=== PATIENT | male | born 1980 | race Caucasian/White ===

== ENCOUNTER 2018-10-09 17:35 | Emergency (ER) | payer OTHER, BC, SELFPAY ==
[2018-10-09 17:35] VITALS: BP 161/94; PULSE 96; RESP 18; TEMP 36.9; O2SAT 100; BMI 37.3
--- NOTE | 2018-10-09 18:02 | EKG12_ITS ---
Test Reason : GEN ILL Blood Pressure : / mmHG Vent. Rate : 084 BPM Atrial Rate : 084 BPM P-R Int : 152 ms QRS Dur : 094 ms QT Int : 370 ms P-R-T Axes : 000 007 025 degrees QTc Int : 437 ms Normal sinus rhythm with sinus arrhythmia Normal ECG Confirmed by TEOFILO GEE, MUKUND ([id number]), development editor ELIZABETH MOREL ([id number]) on 10/11/2018 3:44:37 PM Referred By: ROBSON/KORINA Confirmed By:MUKUND RED MD
[2018-10-09 18:42] LABS: Absolute Lymphocyte Count 2.78 X10^3/ul (0.83-4.51); Absolute Neutrophil Count 4.7 X10^3/uL (2.0-7.7); Basophil# 0.04 X10^3/uL; Basophil% 0.5 % (0-1); Eosinophil# 0.11 X10^3/uL; Eosinophils% 1.3 % (0-5); Hematocrit 44.5 % (40-54); Hemoglobin 14.8 g/dl (13.0-16.5); Lymphocyte # 2.78 X10^3/ul (4.0); Mean Corp Hgb Conc 33.3 g/gl (32-36); Mean Corpuscular Hgb 29.5 pg (27.0-32.0); Mean Corpuscular Volume 88.8 fL (80-94); Mean Platelet Vol. 10.2 fl (6.2-12.0); Monocyte# 0.57 X10^3/uL; Neutrophil # 4.66 X10^3/uL (2.7-7.7); Platelet Count 227 K/mm3 (150-450); RBC Distribution Width CV 12.3 % (11.6-14.6); RBC Distribution Width SD 39.4 fl (35.1-43.9); Red Blood Count 5.01 M/mm3 (4.6-6.2); White Blood Count 8.2 K/mm3 (4.4-11.0)
--- NOTE | 2018-10-09 18:45 | RAD_ITS ---
STUDY: X-RAY CHEST REASON FOR EXAM: Male, 37 years old. Exposed to a unknown substance at work 3 weeks ago TECHNIQUE: PA and lateral views of the chest. COMPARISON: None. FINDINGS: The lungs are clear and expanded. There is no demonstrated pleural abnormality. Normal size heart. Normal mediastinum and mona. Normal visualized pulmonary arteries. Normal visualized aortic arch and descending thoracic aorta. Normal visualized thoracic spine. Normal visualized ribs, clavicles, and shoulders. There is no demonstrated abnormality of the visualized soft tissue structures of the upper abdomen. RAD/Chest PA and Lateral IMPRESSION: Normal x-ray examination of the chest. Electronically Signed: Feliz Ragland DO at 19:14 EST Tel , Service support ,
[2018-10-09 18:46] LABS: POSITIVE COUNT NO; POSITIVE DIFFERENTIAL NO; POSITIVE MORPHOLOGY NO
[2018-10-09 19:01] LABS: ALB/GLOB Ratio 1.1 RATIO (0.9-2.4); AST(SGOT) 22 U/L (15-37); Alanine Aminotransfer ALT/SGPT 28 U/L (16-61); Albumin, Serum 3.8 g/dL (3.2-5.0); Alkaline Phosphatase 61 U/L (45-117); Anion Gap 8 (5-15); BUN 14 mg/dL (7-18); BUN/Creat Ratio 13.6 RATIO (10-20); Calcium,Total 8.5 mg/dL (8.5-10.1); Chloride 105 mmol/L (98-107); Creatinine, Serum 1.03 mg/dL (0.70-1.30); EST Glomerular Filtration Rate 86 mL/min (>60); Est Glom Filt Rate - Afr Amer 105 mL/min (>60); Globulin 3.6 g/dL (2.2-4.2); Glucose 85 mg/dL (74-106); Potassium 3.2 mmol/L (3.5-5.1); Protein, Total 7.4 g/dL (6.4-8.2); Sodium Level 139 mmol/L (136-145)
--- NOTE | 2018-10-09 20:49 | ED.VISSUMM ---
- ER Visit Summary Date of Service: 10/09/18 Chief Complaint: Patient presents because of headache, redness to his eyes, shortness of breath and not feeling right History of Present Illness: The patient is a 37 M who presents from work. 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 Apparently there is contamination with hydrocarbon. He made comment that supervisors states safe level is 10 ppm and reading was greater than 200 ppm. Dial Printer was contacted unknown what the exposure is. Contacted poison control for advice. They agree the compound needs to be known. He has no past medical history. He denies double vision blurred vision or loss of vision. Denies trouble with his hearing. Denies trouble with speech or swallowing. Does report shortness of breath. He does report mild cough. He is a non-smoker. He also reports nausea without vomiting diarrhea. He denies any urologic symptoms. He denies rash. Denies myalgias arthralgias. He denies problems with balance or any neuro symptoms. Physical Examination: Vital signs noted blood pressure is elevated 161/94. Is not hypoxic. Is not tachypnic. HEENT exam is remarkable for injected sclera bilaterally. Conjunctive are slightly injected on the right. HEENT exam is otherwise normal. Lungs are clear to auscultation. Heart is regular without murmur, gallop or rub. Abdomen soft nontender. Neurologic exam is normal. Test Results: CBC, CMP were unremarkable to two-view x-ray of the chest interpreted by me as negative. Emergency Department Course and Treatment: After discussion with poison control and concern for hydrocarbon exposure with patient complained of shortness of breath chest x-ray was obtained to look for evidence of pneumonitis. With his constellation of symptoms concerned that there are certain hydrocarbons and cause hepatic disease CMP was obtained. Treatment Plan: Since his workup was unremarkable and he states he is now wearing a protective mask and clothing he will be discharged to home Disposition: Discharge to home Impression: Hydrocarbon exposure with multiple symptoms without evidence of endorgan injury This note was generated with [employer] dictation software. It may contain incorrect words, spelling, and punctuation that were not noted in review of the chart prior to signing ED Disposition - Plan for ED Patient: Disposition: Home or Assisted Living Instructions: First Aid: Chemical Exposure, ED Chemical Conjunctivitis Referrals: Katrina Echols [Primary Care Provider] - As Needed
[2018-10-09 21:02] VITALS: BP 140/96; PULSE 87; RESP 16; O2SAT 98
== END 2018-10-09 21:08 | disposition home or self-care (01) ==
PROVIDERS: Emergency Provider Emergency Medicine; Family Provider Family Medicine; PCP Family Medicine
DX: T75.89XA Other specified effects of external causes, initial encounter (principal); R51 Headache; R06.02 Shortness of breath; H57.89 Other specified disorders of eye and adnexa
CPT/HCPCS: 71046; 80053; 85025; 93005; 99283; A4216

== ENCOUNTER 2018-10-12 19:11 | Emergency (ER) | payer OTHER, BC, SELFPAY ==
[2018-10-12 19:12] VITALS: BP 163/109; PULSE 86; RESP 20; TEMP 36.8; O2SAT 96; BMI 36.6
--- NOTE | 2018-10-12 20:15 | ED.RN ---
CONTACTED PT'S MOORE KATHLEEN PEPPER WHO DECLINED POST ACCIDENT TESTING AT THIS TIME. PT WAS GIVEN FROI TO FILL OUT.
--- NOTE | 2018-10-12 21:00 | ED.DCSUM_ITS ---
- ER Visit Summary Date of Service: 10/12/18 Chief Complaint: Chemical exposure History of Present Illness: The patient is a [address] Curry. 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 He reports that he has had a multitude of symptoms. States that he has a headache that comes and goes. Is 9 out of 10 at worst and 3 out of 10 currently. Is not have a history of similar headaches. He complains of bumps to his chin, scalp, and lip. States he has a rash that itches. He had a diarrhea 2-3 times a day for the past 3 weeks. He denies any blood in stool or black tarry stools. He reports he has irritation to his eyes. He has a nonproductive cough. He reports that he is mildly short of breath with breathing. He complains of generalized weakness. Physical Examination: Vitals: Stable. Afebrile. General: Well-nourished and well-developed. Head: Normocephalic atraumatic. Approximately 5 mm ingrown hair right occipital region of his scalp. Neck: Supple, no lymphadenopathy. No JVD. Nontender. Cardiovascular: Regular rate and rhythm. No murmurs. Respiratory: No respiratory distress. Clear to auscultation bilaterally. Abdominal: Soft, nontender, nondistended, normal bowel sounds. No guarding, rebound, or peritoneal signs. Back: Nontender. Extremities: Nontender, no edema. Skin: Normal color, no rash. Neurologic: Alert and oriented ?3. Cranial nerves II through XII are intact. Normal strength and sensation. Psych: Normal affect. Test Results: On October 09 the patient had labs. The CBC was normal. The Chem-7 was marked for potassium 3.2. These were not repeated. He also had a chest x-ray that day that was negative. Emergency Department Course and Treatment: The patient is resting comfortably. He did bring along a report from the soil samples. This is over 30 pages long and shows multiple different things that he was exposed to. I called and went through this list with poison control. They called and spoke with the customs patrol officer that is correspondence school teacher for them. At this time there is no further treatment or evaluation that is needed tonight. Treatment Plan: Patient will be discharged back to work with instructions that he is not able to work where he will have exposure to any chemicals. Follow-up with corporate care as soon as possible for further evaluation and treatment. Return to the emergency department for any worsening symptoms. Disposition: To home in improved and stable condition. Impression: 1. Inhalation chemical exposure. This note was generated with [employer] dictation software. It may contain incorrect words, spelling, and punctuation that were not noted in review of the chart prior to signing ED Disposition - Plan for ED Patient: Disposition: Home or Assisted Living Instructions: ED Inhalation Chemical Referrals: [facility] [GROUP OF PHYSICIANS] - As soon as possible
[2018-10-12 21:07] VITALS: RESP 16
== END 2018-10-12 21:08 | disposition home or self-care (01) ==
LOC: ED 20:24
PROVIDERS: Emergency Provider Emergency Medicine; Family Provider Family Medicine; PCP Family Medicine
DX: T59.891A Toxic effect of other specified gases, fumes and vapors, accidental (unintentional), initial encounter (principal); R51 Headache; R21 Rash and other nonspecific skin eruption; R19.7 Diarrhea, unspecified; H57.89 Other specified disorders of eye and adnexa; R05 Cough; R06.02 Shortness of breath; R53.1 Weakness; Z72.0 Tobacco use
CPT/HCPCS: 99282

== ENCOUNTER → 2018-10-17 14:06 | Outpatient (CLI) | payer BC, SELFPAY ==
[2018-10-12 19:12] VITALS: BMI 36.6
== END ==
PROVIDERS: Family Provider Family Medicine; PCP Family Medicine; Referring Provider Physician Assistant; Visit Provider Physician Assistant
DX: J02.9 Acute pharyngitis, unspecified (principal)
CPT/HCPCS: 87081

== ENCOUNTER → 2018-10-18 10:02 | Outpatient (CLI) | payer OTHER, BC, SELFPAY ==
[2018-10-12 19:12] VITALS: BMI 36.6
[2018-10-18 12:22] LABS: Absolute Lymphocyte Count 1.21 X10^3/ul (0.83-4.51); Absolute Neutrophil Count 3.1 X10^3/uL (2.0-7.7); Basophil# 0.01 X10^3/uL; Basophil% 0.2 % (0-1); Eosinophil# 0.03 X10^3/uL; Eosinophils% 0.6 % (0-5); Hematocrit 46.4 % (40-54); Hemoglobin 15.1 g/dl (13.0-16.5); Lymphocyte # 1.21 X10^3/ul (4.0); Lymphocyte % 23.2 % (19-41); Mean Corp Hgb Conc 32.5 g/gl (32-36); Mean Corpuscular Hgb 29.4 pg (27.0-32.0); Mean Corpuscular Volume 90.3 fL (80-94); Mean Platelet Vol. 11.3 fl (6.2-12.0); Monocyte# 0.88 X10^3/uL; Monocyte% 16.9 % (0-10); Neutrophil # 3.08 X10^3/uL (2.7-7.7); Neutrophil % 59.1 % (47-70); Platelet Count 158 K/mm3 (150-450); RBC Distribution Width CV 12.5 % (11.6-14.6); RBC Distribution Width SD 41.3 fl (35.1-43.9); Red Blood Count 5.14 M/mm3 (4.6-6.2); White Blood Count 5.2 K/mm3 (4.4-11.0)
[2018-10-18 12:31] LABS: POSITIVE COUNT NO; POSITIVE DIFFERENTIAL NO; POSITIVE MORPHOLOGY NO
[2018-10-18 12:41] LABS: AST(SGOT) 26 U/L (15-37); Alanine Aminotransfer ALT/SGPT 29 U/L (16-61); Albumin, Serum 3.7 g/dL (3.2-5.0); Alkaline Phosphatase 56 U/L (45-117); Anion Gap 6 (5-15); BUN 12 mg/dL (7-18); BUN/Creat Ratio 10.2 RATIO (10-20); Calcium,Total 8.1 mg/dL (8.5-10.1); Chloride 103 mmol/L (98-107); Creatinine, Serum 1.18 mg/dL (0.70-1.30); EST Glomerular Filtration Rate 74 mL/min (>60); Est Glom Filt Rate - Afr Amer 89 mL/min (>60); Globulin 3.6 g/dL (2.2-4.2); Glucose 128 mg/dL (74-106); Potassium 3.7 mmol/L (3.5-5.1); Protein, Total 7.3 g/dL (6.4-8.2); Sodium Level 137 mmol/L (136-145)
== END ==
PROVIDERS: Family Provider Family Medicine; PCP Family Medicine; Referring Provider Physician Assistant; Visit Provider Physician Assistant
DX: R50.9 Fever, unspecified (principal); R53.83 Other fatigue; E87.6 Hypokalemia; R06.02 Shortness of breath; R51 Headache
CPT/HCPCS: 36415; 80053; 85025

== ENCOUNTER → 2022-10-14 | Outpatient (CLI) | payer BC, SELFPAY ==
--- NOTE | 2022-10-14 08:30 | MRI_ITS ---
INDICATION: LEFT ASYMMETRICAL hearing loss,dizziness EXAMINATION: MRI - MR Brain WO/W Contrast TECHNIQUE: Multiplanar and multisequence MR images of the brain were obtained without and with gadolinium. High-resolution 3-D imaging through the IACs obtained. IV Contrast Dosage and Agent: None. COMPARISON: 25 mL dotarem IV. FINDINGS: BRAIN PARENCHYMA: Normal midline developmental anatomy. No Chiari malformation. Unremarkable sella. Cerebellar pontine angles are clear. No evidence of intracranial space occupying mass or mass effect. Normal anna-white matter signal. No evidence of brain parenchymal or meningeal enhancement. No restricted diffusion. No evidence of prior hemorrhage. IAC: Unremarkable internal auditory canals without abnormal enhancement or expansile mass. Minimal inferior mastoid air cell fluid suggested. Paranasal sinuses grossly clear with minimal ethmoid sinus mucoperiosteal thickening. INTERNAL AUDITORY CANALS: The internal auditory canals are well visualized and patent. No mass identified. CSF SPACES: Appropriate for age. No hydrocephalus. Basal cisterns are patent. VASCULAR SYSTEM: Congenitally diminutive right vertebral artery.. CALVARIUM, SKULL BASE, PARANASAL SINUSES AND MASTOID AIR CELLS: Clear. No expansile changes. ORBITS: Both globes, extraocular muscles, optic nerves and retrobulbar fat appear unremarkable. MRI/Brain W/WO Contrast IMPRESSION: Negative MRI Brain and Interal Auditory Canals. Minimal inferior right mastoid air cell fluid of uncertain significance. Electronically Signed: Walter Sanchez MD at 1:37 EST ,
== END | disposition home or self-care (01) ==
PROVIDERS: PCP Family Medicine; Referring Provider Otolaryngology; Visit Provider Otolaryngology
DX: R42 Dizziness and giddiness (principal); H90.42 Sensorineural hearing loss, unilateral, left ear, with unrestricted hearing on the contralateral side
CPT/HCPCS: 70553; A9575

== ENCOUNTER 2023-11-18 15:49 | Emergency (ER) | payer BC, SELFPAY ==
[2023-11-18 15:51] VITALS: BP 153/88; PULSE 89; RESP 14; TEMP 36.1; O2SAT 96; BMI 36.1
--- NOTE | 2023-11-18 16:05 | EX.ED.UPPERE ---
HPI <TALHA Shore - Last Filed: 11/18/23 17:31> History of Present Illness Chief Complaint: Upper Extremity Injury Narrative Narrative: Patient was picking up a small children's trampoline he felt a pop and electric shock type pain in his right lower bicep. He has pain with movement of the upper arm and bicep since. He still has full range of motion and was able to get dressed to come to the ED. He has no weakness or paresthesias. There is no direct trauma. He is right-hand dominant. PFSH <TALHA Shore - Last Filed: 11/18/23 17:31> [facility] Home Medications NK 10/24/18 [History Last Taken Unknown] Allergy/AdvReac Type Severity Reaction Status Date / Time Penicillins Allergy Anaphylaxis Verified 11/18/23 15:50 Social History (Updated 10/24/18 @ 15:20 by TALHA Luna) Smoking Status: Never smoker ROS <TALHA Shore - Last Filed: 11/18/23 17:31> ROS ED ROS Narrative Neuro: Negative for motor/sensory dysfunction. Musc: Negative for joint pain, swelling, direct trauma. Heme: Negative for easy bruising, bleeding, lymphadenopathy. EXAM <TALHA Shore Last Filed: 11/18/23 17:31> Physical Exam Narrative Exam Narrative: CONST: Patient sitting in no acute distress. EYES: Normal inspection. NECK: Normal inspection. SKIN: Color normal, no rash, warm, dry, intact. EXTREMITIES: Normal appearance of both upper extremities, tender over right distal bicep with slight flattening of the area but no obvious deformity, no bony tenderness of the extremity. Full ROM, 5/5 strength and normal sensation, 2+ radial pulses. NEURO: Alert and answering questions appropriately. PSYCH: Normal affect. Const Vital Signs: 11/18/23 15:51 Temperature 97 F L Temperature Source Temporal Pulse Rate 89 Respiratory Rate 14 Blood Pressure 153/88 H Blood Pressure Mean 109 Pulse Ox 96 Oxygen Delivery Method Room Air MDM <TALHA Shore - Last Filed: 11/18/23 17:31> MDM MDM Narrative Medical decision making narrative: Differential: Bicep strain versus tear Consults: Spoke with orthopedics who recommended sling and follow-up next week Test considered but not ordered: No indication for x-ray as there was no joint trauma and no bony tenderness Patient seen and evaluated with LAURO. I personally interviewed and examined the patient. I was involved in all aspects of patient's orders, interpretation of results, and treatment. Patient presents to the emergency department with injury to his right upper extremity. Patient states he went to lift and move a trampoline when he felt like an electric shock in his right arm in the area of the elbow and bicep. Patient then felt like he did not have strength to lift. He thinks he may have tore his bicep tendon. Patient is right-hand dominant. HEENT-PERRLA, EOMI, atraumatic Cardiovascular-regular rate and rhythm without murmur on auscultation. Lungs-clear to auscultation bilaterally. Abdomen-normoactive bowel sounds. No tenderness on exam. No rebound or rigidity. Extremities-patient does have some flattening in the area of the distal bicep and bicep tendon. He is able to flex and extend the elbow but seems weaker than the opposite side. There is no bawling up of or obvious deformity otherwise noted to the bicep tendon. He is neurovascular intact distally. Clinically I suspect patient may have a partial tear of his bicep tendon. Discussed with orthopedics and they recommended sling and outpatient follow-up. I do not feel any imaging is indicated. <Dr. Garret De La Torre, DO - Last Filed: 11/18/23 16:24> [facility] Narrative Medical decision making narrative: Patient seen and evaluated with LAURO. I personally interviewed and examined the patient. I was involved in all aspects of patient's orders, interpretation of results, and treatment. Patient presents to the emergency department with injury to his right upper extremity. Patient states he went to lift and move a trampoline when he felt like an electric shock in his right arm in the area of the elbow and bicep. Patient then felt like he did not have strength to lift. He thinks he may have tore his bicep tendon. Patient is right-hand dominant. HEENT-PERRLA, EOMI, atraumatic Cardiovascular-regular rate and rhythm without murmur on auscultation. Lungs-clear to auscultation bilaterally. Abdomen-normoactive bowel sounds. No tenderness on exam. No rebound or rigidity. Extremities-patient does have some flattening in the area of the distal bicep and bicep tendon. He is able to flex and extend the elbow but seems weaker than the opposite side. There is no bawling up of or obvious deformity otherwise noted to the bicep tendon. He is neurovascular intact distally. Clinically I suspect patient may have a partial tear of his bicep tendon. Discussed with orthopedics and they recommended sling and outpatient follow-up. I do not feel any imaging is indicated. Discharge Plan Triage Chief Complaint: Upper Extremity Injury ED Midlevel Provider: Lashanda Johnson ED Provider: Garret De La Torre Dx/Rx/DC Orders Clinical Impression: Tear of right biceps muscle Instructions: Self-Care for Strains and Sprains Prescriptions: No Action NK Primary Care Provider: Katrina Echols Referrals: Bhavesh Moya MD [Med Staff - Active Staff] - Katrina Echols MD [Primary Care Provider] - Activity Restrictions/Additional Instructions: Use ice and tylenol or motrin as needed and the orthopedic office should contact you on Monday, if you don't hear from them please call for an appointment. Disposition Disposition: Home, Self Care Discharge Date/Time: 11/18/23 16:39
[2023-11-18 16:38] VITALS: BP 157/90; PULSE 90; RESP 16; TEMP 36.6; O2SAT 97
== END 2023-11-18 16:39 | disposition home or self-care (01) ==
PROVIDERS: Emergency Provider Emergency Medicine; PCP Family Medicine; Visit Provider Emergency Medicine
DX: S46.211A Strain of muscle, fascia and tendon of other parts of biceps, right arm, initial encounter (principal); X50.9XXA Other and unspecified overexertion or strenuous movements or postures, initial encounter
CPT/HCPCS: 99283

== ENCOUNTER → 2023-11-23 | Outpatient (CLI) | payer BC, SELFPAY ==
--- NOTE | 2023-11-23 12:36 | MRI_ITS ---
STUDY: MRI RIGHT ELBOW REASON FOR EXAM: Male, 43 years old. Possible distal biceps tear - likely partial. TECHNIQUE: Standardized fat and water weighted pulse sequences were obtained in all 3 orthogonal planes. COMPARISON: Right elbow radiographs dated 11/21/2023. FINDINGS: Normal radio-capitellum articulation. Normal radial collateral ligamentous complex. Normal common extensor tendon. Normal ulnotrochlear articulation. Normal ulnar collateral ligamentous complex. Normal common flexor tendon. The cubital tunnel is normal, with a normal ulnar nerve. There is a tear/rupture of the distal biceps tendon with 3.5 cm proximal tendon retraction (sagittal T2 series 7 images 9-12. Normal brachialis musculotendinous insertion. Normal triceps tendon and teno-osseous insertion. Normal olecranon process. The visualized distal humerus, proximal radius, and ulna are normal. The visualized muscles of the distal arm and proximal forearm are normal. There is mild subcutaneous soft tissue edema along the medial aspect of the elbow. MRI/Upper Ext Joint Only(Routine) IMPRESSION: Tear/rupture of the distal biceps tendon with 3.5 cm proximal tendon retraction. Mild subcutaneous soft tissue edema along the medial aspect of the elbow. Electronically Signed: Rivera Anand MD at 14:32 EDT ,
== END | disposition home or self-care (01) ==
LOC: MRI 12:29
PROVIDERS: PCP Family Medicine; Referring Provider Orthopaedic Surgery Sports Medicine; Visit Provider Orthopaedic Surgery Sports Medicine
DX: M25.521 Pain in right elbow (principal)
CPT/HCPCS: 73221

== ENCOUNTER 2023-11-29 05:46 | Day surgery (SDC) | payer BC, SELFPAY ==
[2023-11-29] VITALS (8 sets, daily range): BP systolic 127–148; BP diastolic 75–94; PULSE 58–87; RESP 16–18; TEMP 36.1–36.6; O2SAT 94–100; BMI 35.5
[2023-11-29] MEDS: Lactated Ringers 1,000 ML 15 ML IV (06:33)
--- NOTE | 2023-11-29 07:15 | PCM.HP.STD ---
HPI - General HPI Narrative REBECCA CORONA, is a 43 M who presents for repair right distal biceps. No changes to h and p. Questions answered. Right elbow marked, consent updated. Discussed post op instructions, rab and narcotic counselling. OK to proceed. MR#: [id number] Acct: [id number] Name: REBECCA CORONA Rep #: [id number] : 1980 Provider: Dr. Bhavesh Moya MD Age/Sex: 43/M Location: [facility] [email or web address] Status: Signed Intake Vital Signs 11/20/2414:30 Height 6 ft 3 in Weight: 292 lb 4 oz BMI 36.5 Intake Visit Reasons: RIGHT ARM Accompanied by: Self Allergies Penicillins Allergy (Verified 11/24/23 12:58) Anaphylaxis Medications NK 10/24/18 [History Confirmed 11/24/23] PFSH Medical History (Updated 11/24/23 @ 13:20 by Bhavesh Moya MD) Right elbow pain Rupture of right distal biceps tendon Surgical History Hx of foot surgery Social History household members: spouse Smoking Status: Never smoker Smokeless tobacco user: chewing tobacco alcohol intake: current HPI RIGHT ARM Details: This documentation accurately reflects the service provided and the decisions made by me, Dr. Bhavesh Moya MD 11/24/23 1256. Part of today?s visit was documented by [ ], acting as scribe. REBECCA CORONA is a 43 year old M here today for R elbow MRI FU. Ortho Exam General General: Yes no acute distress Neurologic: Yes alert and Yes oriented x3 Psychologic: Yes reasonable and appropriate Supplemental Info [facility] Imaging Services [address] [place] [address] Upper Ext Joint Only(Routine) MR#: [id number] Acct: [id number] Name: REBECCA CORONA Rep #: [id number] : 1980 M 43 From: Rivera Anand MD PCP: Dr. Katrina Echols MD Status: REG CLI Study: Upper Ext Joint Only(Routine) Date of Exam: 11/23/23 Exam# [id number] Ordering Dr: Bhavesh Moya MD STUDY: MRI RIGHT ELBOW REASON FOR EXAM: Male, 43 years old. Possible distal biceps tear - likely partial. TECHNIQUE: Standardized fat and water weighted pulse sequences were obtained in all 3 orthogonal planes. COMPARISON: Right elbow radiographs dated 11/21/2023. FINDINGS: Normal radio-capitellum articulation. Normal radial collateral ligamentous complex. Normal common extensor tendon. Normal ulnotrochlear articulation. Normal ulnar collateral ligamentous complex. Normal common flexor tendon. The cubital tunnel is normal, with a normal ulnar nerve. There is a tear/rupture of the distal biceps tendon with 3.5 cm proximal tendon retraction (sagittal T2 series 7 images 9-12. Normal brachialis musculotendinous insertion. Normal triceps tendon and teno-osseous insertion. Normal olecranon process. The visualized distal humerus, proximal radius, and ulna are normal. The visualized muscles of the distal arm and proximal forearm are normal. There is mild subcutaneous soft tissue edema along the medial aspect of the elbow. MRI/Upper Ext Joint Only(Routine) IMPRESSION: Tear/rupture of the distal biceps tendon with 3.5 cm proximal tendon retraction. Mild subcutaneous soft tissue edema along the medial aspect of the elbow. Electronically Signed: Rivera Anand MD at 14:32 EDT Reading Location ID and State: [facility] / [place] , Service support , agree distal biceps tear Coding Level of Care Code Off vis,est,level 4 Diagnoses Rupture of right distal biceps tendon S46.211A Assessment and Plan Assessment and Plan (1) Rupture of right distal biceps tendon: Status: Acute Plan: 43-year-old man with a right distal biceps complete tear with some retraction 3.5 cm. I explained to the patient the diagnosis prognosis different treatment options. With nonoperative treatment typically results in loss of 20% supination strength and 10 to 15% flexion strength and easy fatigability of the arm. This is a active man with distal biceps injury typically it is recommended for surgery in this patient population. Surgery would be in the form of single incision repair of the right distal biceps. Patient wants to go ahead with surgery I explained the risks including 3-7% risk of PIN nerve injury, which one third may be permanent. There is also risk of rerupture infection and other problems with surgery generally recovery is up 4 to 6 months before return to near full strength he understands wants to go ahead and signed the consent form for surgery. Chewing tobacco may increase surgical risks. Pros and cons risks and benefits were discussed with the patient including but not limited to infection, pain, stiffness, bleeding, damage to surrounding structures, neurovascular injury, recurrence or retear, failure or wear of hardware or fixation, instability, fracture, deep vein thrombosis and pulmonary embolism, anesthetic risks, , patient dissatisfaction, need for further surgery and other risks. Patient understood and wished to proceed with surgery, and signed the informed consent documentation. [facility] Medical History (Updated 11/28/23 @ 14:06 by Gabby Davidson) Alcohol use Chewing tobacco dependence History of steroid therapy Right elbow pain Rupture of right distal biceps tendon Wears contact lenses Home Medications NK 10/24/18 [History Last Taken Unknown] Allergy/AdvReac Type Severity Reaction Status Date / Time Penicillins Allergy Anaphylaxis Verified 11/29/23 06:21 Surgical History Hx of foot surgery Social History household members: spouse Smoking Status: Current every day smoker tobacco type: smokeless tobacco Smokeless tobacco user: chewing tobacco alcohol intake: current Vital Signs Vital Signs Vital Signs: 11/29/23 06:24 11/29/23 06:24 Temperature 97.9 F Temperature Source Temporal Pulse Rate 84 Respiratory Rate 18 Respiratory Pattern Normal Blood Pressure 148/92 H Blood Pressure Mean 110 Blood Pressure Source Monitor Blood Pressure Position Semi-Fowlers Blood Pressure Location Left Arm Pulse Ox 100 Oxygen Delivery Method Room Air Weight Weight: 284 lb 6.341 oz Body Mass Index (BMI) 35.5
[2023-11-29] MEDS: Cefazolin 3 GM in 0.9% Normal Saline (100mL Bag) 100 ML IV (07:30)
--- NOTE | 2023-11-29 08:05 | RAD_ITS ---
INDICATION: DISTAL BICEP REPAIR EXAMINATION/TECHNIQUE: X-RAY - RIGHT XR Elbow 1 View COMPARISON: Prior study dated: 11/21/2023 FINDINGS: Single view of the abdomen was obtained on a C-arm. Surgical clip is seen in the proximal radius. The exam was not performed for diagnostic purposes. RAD/Elbow 2 Views IMPRESSION: Intraoperative exam as described above. Electronically Signed: Aleksey Samaniego MD at 15:23 EDT ,
[2023-11-29] MEDS: Bupivacaine 0.25% 30 ML Vial (08:47)
--- NOTE | 2023-11-29 08:58 | OP.PCM_ITS ---
Problems Associated Problem List Diagnoses (1) Rupture of right distal biceps tendon: Report of Operation Date of Procedure: 11/29/23 Pre-Operative Diagnosis: R distal biceps tear Post-Operative Diagnosis: same Surgery/Procedure Performed:: Repair R distal biceps Surgeon: Bhavesh Moya Type of Anesthesia: General and Local Anesthesiologist: Koko Collins Estimated Blood Loss (mL): 20 Description of Procedure: Patient brought to the operating room theater. Placed supine on the table. 3 g IV Ancef administered prior to start of procedure. All bony prominences padded. SCDs on the legs. General anesthesia induced. Arm table to the patient's right side. 24 inch tourniquet applied to the upper extremity properly padded. Bed turned 90 degrees. Right upper extremity prepped and draped in the usual sterile fashion allowing over 3 minutes drying time prior to draping. Preoperative evelia eout performed confirm the site patient and surgery. Began by elevating the limb inflated the tourniquet to 250 mmhg. Made a standard transverse incision 2 fingerbreadths below the level of the elbow crease. This was in the mid aspect of the proximal volar forearm. Carried the dissection down through skin and subcutaneous tissue to meticulous hemostasis. Protected superficial cutaneous nerves and vessels. Identified the distal biceps tendon. Deliver this through the incision. I removed the bulbous distal end of the distal biceps down to healthy tissue tubularized this. Use the Arthrex distal button kit with a Pedro needle to perform a running locking suture and locked the suture distally cut at the splice. Transfer the suture ends in opposite directions through the button. Next I turned my attention distally. Identified the tuberosity. I used intra op radiographs to do this. I cleared away any superficial soft tissue from the tuberosity fully supinate the arm. Passed spade tip guidewire bicortically at this area. Then I sized the tendon to be a size 8 I reamed over the proximal cortex with a size 8 reamer irrigated and removed the bony debris. I then passed the button to the far cortex and flipped the button, delivered the tendon into the bone tunnel by pulling on free ends of sutures, tension slide technique. I had to flex the arm at least 30 degrees to accomplish this and even then there is tension on the repair. Mobilized early adhesions prior to doing the repair. I then passed 1 suture limb back through the tendon and locked this using 5 interrupted half hitches with the sutures cut short. There is no room for the interference screw so I elected not to place that. Tourniquet let down thorough hemostasis thorough irrigation performed meticulous hemostasis. Elbow flexed 90 degrees wound closed with 3-0 Vicryl sutures and 3-0 Monocryl. Skin cleaned with wet dry dressing. I used 10 cc of 0.25% bupivacaine around the soft tissue's at the incision site. Skin cleaned with wet dry dressing followed application of Steri-Strips Adaptic 4 x 4 gauze ABD Conrado wrap as well as a posterior prefabricated fiberglass splint with the elbow at 90 degrees and a well-padded sling for the upper extremity. Patient will come from general anesthetic transferred off the operating table taken postanesthetic care unit in stable addition. All sponge needle return counts were correct no complications. cpt 73912 Grafts/Implants Used: arthrex distal biceps metal button Complications none Admit VTE Documentation VTE Present on Admission: No VTE Mechan Device Prophylaxis: SCD's VTE Pharm Prophylaxis ordered?: No Reason prophylaxis not ordered:: Treatment Not Indicated Procedures Musculoskeletal [id number]: Other Procedure See Report
--- NOTE | 2023-11-29 09:09 | DCINST_ITS ---
Discharge Instructions Diet Discharge Diet: No restrictions Activity May resume sexual activity in: 4-6 weeks Ice area for (Minutes): 10 Weight Bearing Status: No weight bearing Additional Activity Instructions:: ok to move hand and fingers Dressing / Incision Call your doctor if your incision/area has: Continuous Slow Oozing, Sudden Increased Bleeding, Increased Pain/ Swelling, Increased Redness, Foul Smelling Discharge and Swelling at the incision site Remove Dressing in: leave in place till F/U Follow Up Care Please Follow Up With: Bhavesh Moya MD When: 2 days Test Results: Test results from this visit will be discussed in further detail at your follow- up appointment, if applicable. Discharge Plan Admission Attending Provider: Bhavesh Moya Primary Care Provider: Katrina Echols Discharge Orders/Prescriptions Prescriptions: New oxycodone-acetaminophen [Endocet] 5-325 mg tablet 1 - 2 tab PO Q4H MDD 6 PRN (Reason: pain) 5 Days Qty: 20 0RF Referrals / Follow Up: Bhavesh Moya MD [Med Staff - Active Staff] - Katrina Echlos MD [Primary Care Provider] - Disposition Disposition (needs filled in before D/C Order can be placed): Home, Self Care
--- NOTE | 2023-11-29 09:21 | DCINST_ITS ---
Discharge Instructions Diet Discharge Diet: No restrictions Activity Weight Bearing Status: No weight bearing Lifting Restrictions: ok for hand and wrist rom, no lifting Dressing / Incision Call your doctor if your incision/area has: Continuous Slow Oozing, Sudden Increased Bleeding, Increased Pain/ Swelling, Increased Redness, Foul Smelling Discharge and Swelling at the incision site Change Dressing in: leave in place till F/U Follow Up Care Please Follow Up With: Bhavesh Moya MD When: 2 days Test Results: Test results from this visit will be discussed in further detail at your follow- up appointment, if applicable. Discharge Plan Admission Attending Provider: Bhavesh Moya Primary Care Provider: Katrina Echols Discharge Orders/Prescriptions Prescriptions: New oxycodone-acetaminophen [Endocet] 5-325 mg tablet 1 - 2 tab PO Q4H MDD 6 PRN (Reason: pain) 5 Days Qty: 20 0RF Referrals / Follow Up: Bhavesh Moya MD [Med Staff - Active Staff] - Katrina Echols MD [Primary Care Provider] - Disposition Disposition (needs filled in before D/C Order can be placed): Home, Self Care
--- NOTE | 2023-11-29 09:23 | DCINST_ITS ---
Discharge Instructions Diet Discharge Diet: No restrictions Activity Weight Bearing Status: No weight bearing Dressing / Incision Call your doctor if your incision/area has: Continuous Slow Oozing, Sudden Increased Bleeding, Increased Pain/ Swelling, Increased Redness, Foul Smelling Discharge and Swelling at the incision site Change Dressing in: leave in place till F/U Follow Up Care Please Follow Up With: Bhavesh Moya MD When: 2 days Test Results: Test results from this visit will be discussed in further detail at your follow- up appointment, if applicable. Discharge Plan Admission Attending Provider: Bhavesh Moya Primary Care Provider: Katrina Echols Discharge Orders/Prescriptions Prescriptions: New oxycodone-acetaminophen [Endocet] 5-325 mg tablet 1 tab PO Q4H MDD 6 PRN (Reason: pain) 5 Days Qty: 20 0RF Referrals / Follow Up: Bhavesh Moya MD [Med Staff - Active Staff] - Katrina Echols MD [Primary Care Provider] - Disposition Disposition (needs filled in before D/C Order can be placed): Home, Self Care
[2023-11-29] MEDS: Oxycodone/Apap 5/325 Tablet PO (09:53)
== END 2023-11-29 10:30 | disposition home or self-care (01) ==
LOC: SDC 05:46 → AC 05:47
PROVIDERS: PCP Family Medicine; Referring Provider Orthopaedic Surgery Sports Medicine; Visit Provider Orthopaedic Surgery Sports Medicine
PROC: (CPT 24341; principal; 2023-11-29 07:15)
DX: S46.211A Strain of muscle, fascia and tendon of other parts of biceps, right arm, initial encounter (principal); F17.220 Nicotine dependence, chewing tobacco, uncomplicated; X58.XXXA Exposure to other specified factors, initial encounter
CPT/HCPCS: 24341; 01710; 73070; 76000; J7120; J2405

== ENCOUNTER 2024-01-12 16:30 | Outpatient (RCR) | payer BC, SELFPAY ==
--- NOTE | 2024-01-18 13:24 | HP.PTEVAL ---
Patient's Visit Information Visit Information Visit Information: REBECCA CORONA is a 43 year old M referred to Physical Therapy by Dr. Bhavesh Moya MD with a diagnosis of L biceps distal repair. Date of Evaluation: 12/29/23 Physical Therapist: Richard Almazan DPT Visit Plan Frequency: 1x/Week Duration: 6 Weeks Plan: Start with extension of elbow progressing by 10deg per week. Keep brace in 90deg locked for work and at rest. No resistance training. Cont. to educate patient about no lifting to protect new attachment. Subjective Subjective: Pt. is here today for his initial evaluation with diagnosis of R distal biceps rupture with subsequent repair. Pt. reports overall doing well, but has been having trouble with his brace staying on. He is back to work, but on a modified duty. He reports carrying some objects which told him to hold off on. He also reports starting to lift weights inlcuding bicep curls and OH pressing. I reminded him that he is not to be lifting at all right now. He reports not knowing this, but will try and refrain from this from now on. Pt. is sleeping well, overall not much pain. Pt. is eager to get back to all work and reactional activities without limitaitons. Pt. 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 Objective Objective: POSTURE: Pt. has great posture in stance. Brace slightly off positioned, but able to be corrected. PALPATION: No pain with palpation throughout biceps, Well healing incision. No signs of infection. NEURO: Normal DTR on LUE, RUE not tested. Pt. has normal sensation throughout BUEs. ROM: L shoulder: full motion no pain. L elbow: PROM: flexion 115deg, ext 20deg. No pain with testing, did not push into extension. MMT: did not test LUE. Balance/Special Test Scores Lower Extremity Functional Score: 11 Quick DASH Score: 34.0900 Goals Goal 1:: LTG: Pt. to be I with HEP. Goal Time Frame: 2-4 Weeks Goal 2:: LTG: pt. to have increased elbow extension to 0deg by 8 weeks post op. Goal Time Frame: 4-6 Weeks Goal 3:: LTG: Pt. to be initiated in a slow resistive strengthening program once able. Goal Time Frame: 6-8 Weeks Goal 4:: LTG: pt. to have symmetrical strength between B UEs. Goal Time Frame: 8-12 Weeks Rehabilitation Potential Physical Therapy Diagnosis: Pt. has signs and symptoms consistent with L distal biceps repair. Pt. is overall doing well with his ROM, expected tightness into extension. Pt. overall was doing way too much at home including bicep curls and OH presses with his R UE. We talked about this and he going to stop until given the go ahead. I talked with him about slowly stretching elbow into extension by 10deg per week. Pt. consents. Pt would benefit from PT to slow down and adhere to precautions and slowly progress his ROM of his elbow. Rehabilitation Potential: Excellent Anticipated Interventions Patient/Client Instruction: Educate patient on: Condition, Plan of Care and Risk Factors For the Purpose of:: To improve decision making, To facilitate caregiver knowledge, To improve self management, To prevent re-injury and To improve ability to perform tasks related to life management Therapeutic Exercise to Include: Postural training, Flexibilty training, Passive ROM, Active ROM and Scapular Strength/Stabilization For the Purpose of:: To decrease pain, To increase ROM, To improve health of tissue and To decrease soft tissue restriction Manual Therapy Techniques to Include: Passive ROM and Soft tissue mobilization For the Purpose of:: To decrease pain, To increase ROM, To improve nutrient delivery to tissue and To increase oxygenation perfusion Text: Thank you for the opportunity to evaluate your patient. For Medicare and Medicare HMO plans, please review the plan of care and approve it. It will need to be FAXED BACK to us at [phone] for Medicare purposes. For Medicare only, by signing this I certify the plan of care. Please let me know if there are questions or concerns regarding this plan of care. Physician Signature: Date:
== END 2024-01-12 19:00 | disposition home or self-care (01) ==
LOC: PT 16:30
PROVIDERS: PCP Family Medicine; Referring Provider Orthopaedic Surgery Sports Medicine; Visit Provider Orthopaedic Surgery Sports Medicine
DX: S46.211D Strain of muscle, fascia and tendon of other parts of biceps, right arm, subsequent encounter (principal)
CPT/HCPCS: 97140; 97161